=== PATIENT | female | born 1945 | race African-American/Black ===

== ENCOUNTER 2018-01-24 07:52 | Emergency (ER) | payer MEDICARE, MEDICAID ==
[~2018-01-24] VITALS: Ht 167.6 cm; Wt 76.0 kg
[~2018-01-24 07:52] MED LIST: DIPH25CA83; HYDR-3735; HYDR453.
[2018-01-24] MEDS ORDERED: HYDROCODONE/ACETAMINOPHEN 5/325MG TABLET PO ONE (09:30)
[2018-01-24] MEDS ORDERED: SILVER SULFADIAZINE 1% CREAM 25GM TOP ONE (09:30)
[2018-01-24] MEDS ORDERED: TETANUS, DIPHTHERIA, PERTUSSIS VAC/PF 0.5ML (>7YR OLD) IM ONE (10:30)
[2018-01-24 10:45] VITALS: BP 122/61
== END 2018-01-24 11:07 | disposition home or self-care (01) ==
LOC: ER 08:03
DX: T25.121A Burn of first degree of right foot, initial encounter (principal); T25.221A Burn of second degree of right foot, initial encounter; T31.0 Burns involving less than 10% of body surface; X12.XXXA Contact with other hot fluids, initial encounter; Y93.89 Activity, other specified; Y92.89 Other specified places as the place of occurrence of the external cause; Y99.8 Other external cause status
CPT/HCPCS: 16020; 90471; 90715; 99283; 99284